=== PATIENT | male | born 1945 | race Caucasian/White ===

== ENCOUNTER → 2016-11-17 | Outpatient (REF) | LOC: COL.CARD 11:42 | DX: R94.31 Abnormal electrocardiogram [ECG] [EKG] (principal); R06.09 Other forms of dyspnea ==

== ENCOUNTER → 2017-04-09 | Outpatient (REF) | LOC: ZLAB.WCH 18:00 | DX: Z01.89 Encounter for other specified special examinations (principal) | CPT/HCPCS: G0103 ==

== ENCOUNTER → 2018-05-23 | Outpatient (REF) | LOC: ZLAB.WCH 16:15 | DX: Z01.89 Encounter for other specified special examinations (principal) | CPT/HCPCS: G0103 ==

== ENCOUNTER → 2021-06-16 | Outpatient (CLI) | payer MEDICARE ==
[~2021-06-16] MED LIST: ALBUTEROL0.83 MG/ML IH; ALBUTEROL0.83 MG/ML INH; BROVANA15 MCG/2 M IH; COMBIRESP IH; PREDNISONE10 MG PO; PULMICORT0.5 MG/2 M PO; TESSALON P100 MG/CAP PO; ZITHROMAX500 M2 PO
== END ==
LOC: COL.RAD 13:50
DX: Z12.2 Encounter for screening for malignant neoplasm of respiratory organs (principal); J43.9 Emphysema, unspecified; I77.810 Thoracic aortic ectasia; Z87.891 Personal history of nicotine dependence

== ENCOUNTER 2023-02-10 20:19 | Emergency (ER) | payer MEDICARE ==
[~2023-02-10] VITALS: Ht 185.4 cm; Wt 69.5 kg
[2023-02-10 20:50] LABS: BASO % 0.2 % (0.0-2.0); GRAN # 10.6 K/mm3 (1.4-6.5); GRAN % 88.6 % (42.2-75.2); LYMPH # 0.8 K/mm3 (1.2-3.4); LYMPH % 6.6 % (20.0-51.0); MEAN CELL VOLUME 82 fl (80.0-100.0); MEAN CORPUSCULAR HGB CONC 31 g/dl (33.0-37.0); MEAN PLATELET VOLUME 9.9 fl (7.4-10.4); MONO # 0.5 K/mm3 (0.1-0.6); MONO % 4.2 % (1.7-9.3); PLATELET COUNT 423 K/mm3 (130-400); RED BLOOD COUNT 2.86 M/mm3 (4.20-5.60); REDCELL DISTRIBUTION WIDTH-CV 15.3 % (11.5-14.5)
[2023-02-10 20:52] LABS: HEMATOCRIT 23.3 % (42.0-52.0); HEMOGLOBIN 7.1 g/dl (13.5-18.0); MEAN CORPUSCULAR HEMOGLOBIN 25 pg (27-31)
[2023-02-10 20:56] LABS: INR 1.3 (0.8-3.0); PROTHROMBIN TIME 15.1 SECONDS (9.7-12.8)
[2023-02-10 20:59] LABS: PARTIAL THROMBOPLASTIN TIME 23.3 SECONDS (26.0-37.0)
[2023-02-10 21:11] LABS: ALBUMIN 3.6 gm/dL (3.4-4.8); BILIRUBIN,TOTAL 0.5 mg/dL (0.2-1.2); CALCIUM 9.1 mg/dL (8.4-10.2); CREATININE, serum 1.03 mg/dL (0.72-1.25); POTASSIUM 3.7 mmol/L (3.5-4.5); TOTAL PROTEIN 6.4 gm/dL (6.2-8.1)
[2023-02-10 21:16] LABS: TROPONIN-I 0.022 ng/mL (0.00-0.033)
[2023-02-10 22:20] LABS: MEAN CELL VOLUME 79 fl (80.0-100.0); MEAN CORPUSCULAR HGB CONC 31 g/dl (33.0-37.0); MEAN PLATELET VOLUME 9.6 fl (7.4-10.4); PLATELET COUNT 432 K/mm3 (130-400); RED BLOOD COUNT 3.11 M/mm3 (4.20-5.60); REDCELL DISTRIBUTION WIDTH-CV 15.3 % (11.5-14.5)
[2023-02-10 22:30] LABS: HEMATOCRIT 24.7 % (42.0-52.0); HEMOGLOBIN 7.7 g/dl (13.5-18.0); MEAN CORPUSCULAR HEMOGLOBIN 25 pg (27-31)
[2023-02-10 22:46] LABS: LYMPHOCYTE 2 % (20.0-51.0); NEUTROPHILS 98 % (42.0-75.2); PLATELET ESTIMATE INCREASED (NORMAL)
[2023-02-10 22:47] LABS: ANISOCYTOSIS 1+; HYPOCHROMIA 2+; MICROCYTOSIS 1+; OVALOCYTES 1+
[2023-02-10 23:25] VITALS: BP 125/69; PULSE 109; TEMP 96.8
== END 2023-02-10 23:25 | disposition short-term general hospital (02) ==
LOC: COL.ER 20:19
PROVIDERS: Emergency Medicine
DX: J44.1 Chronic obstructive pulmonary disease with (acute) exacerbation (principal); R00.0 Tachycardia, unspecified; D64.9 Anemia, unspecified; R79.89 Other specified abnormal findings of blood chemistry; Z99.81 Dependence on supplemental oxygen; Z87.891 Personal history of nicotine dependence
CPT/HCPCS: C9113; J7030

== ENCOUNTER 2023-03-10 19:07 | Inpatient (IN) | payer MEDICARE ==
[~2023-03-10] VITALS: Ht 182.9 cm; Wt 59.2 kg
[2023-03-10] MEDS ORDERED: TRELEGY ELLIPT1 EACH IH (19:35)
[2023-03-10] MEDS ORDERED: COMBIRESP IH (19:35)
[2023-03-10] MEDS ORDERED: PROTONIX 40MG T40 MG PO (19:35)
[2023-03-10] MEDS ORDERED: ATIVAN 0.50.5 MG/TAB PO (19:36)
[2023-03-10 21:37] VITALS: BP 124/75; PULSE 91; TEMP 97.8
--- NOTE | 2023-03-10 22:31 | NUR ---
THE PATIENT ARRIVED VIA PRIVATE VEHICLE TO THE ED. THE PATIENT WAS ESCORED UP TO THE FLOOR BY THE HOUSE SUP. VIA A WC. THE PATIENT IS ALERT AND ORIENTED UPON ARRIVAL NO S/S OF DISTRESS NOTED. WILL MONITOR.
[2023-03-10 23:17] VITALS: BP 137/73; PULSE 89; TEMP 98
[2023-03-11] VITALS (17 sets, daily range): BP systolic 96–119; BP diastolic 44–79; PULSE 72–120; TEMP 98–99.1
[2023-03-11 00:26] LABS: HEMATOCRIT 22.3 % (42.0-52.0); HEMOGLOBIN 7.2 g/dl (13.5-18.0)
[2023-03-11 06:48] LABS: CALCIUM 8.5 mg/dL (8.4-10.2); CREATININE, serum 0.93 mg/dL (0.72-1.25); POTASSIUM 3.3 mmol/L (3.5-4.5)
[2023-03-11 07:43] LABS: BASO % 0.4 % (0.0-2.0); EOS # 0.1 K/mm3 (0.0-0.7); EOS % 1.1 % (0.0-4.0); GRAN # 3.8 K/mm3 (1.4-6.5); GRAN % 66.6 % (42.2-75.2); LYMPH # 1.2 K/mm3 (1.2-3.4); LYMPH % 20.5 % (20.0-51.0); MEAN CELL VOLUME 84 fl (80.0-100.0); MEAN CORPUSCULAR HGB CONC 33 g/dl (33.0-37.0); MEAN PLATELET VOLUME 10.5 fl (7.4-10.4); MONO # 0.6 K/mm3 (0.1-0.6); MONO % 10.9 % (1.7-9.3); PLATELET COUNT 268 K/mm3 (130-400); RED BLOOD COUNT 2.26 M/mm3 (4.20-5.60)
[2023-03-11 07:45] LABS: HEMATOCRIT 18.9 % (42.0-52.0); HEMOGLOBIN 6.2 g/dl (13.5-18.0); MEAN CORPUSCULAR HEMOGLOBIN 27 pg (27-31)
--- NOTE | 2023-03-11 08:00 | NUR ---
Patient is resting in bed, alert and oriented, telemetry in place, NSR. Receivig 3L O2 NC. Assessment completed. Pt complains of some nausea but not emesis. No further needs at this time. Call light within reach.
--- NOTE | 2023-03-11 11:49 | NUR ---
SW met with pt to complete intake. Pt reports he lives at home with his , Melissa, she has parkinson. He reports his son KERRY is his health advocate @ [phone]. He reports independent on all ADLS and does not use any DME. He has 02 at home of 3L. PCP is [facility] and gets medications from [facility]. Pt reports he has used [facility] before in the past and his PCP is making a order for him on 03/12 for HH services. No other needs at this time. SW await for further recommendations and follow up as needed. DC: Home
--- NOTE | 2023-03-11 18:59 | NUR ---
Patient has been stable, receiving blood transfusion per orders. Report given to night RN.
[2023-03-11 22:31] LABS: HEMATOCRIT 24.9 % (42.0-52.0); HEMOGLOBIN 8.4 g/dl (13.5-18.0)
[2023-03-11 22:49] LABS: IRON,SERUM 242 ug/dL (50-175)
[2023-03-12] VITALS (10 sets, daily range): BP systolic 99–112; BP diastolic 53–69; PULSE 75–109; TEMP 97–98.6
[2023-03-12 08:52] LABS: CALCIUM 8.2 mg/dL (8.4-10.2); CREATININE, serum 0.85 mg/dL (0.72-1.25); POTASSIUM 3.5 mmol/L (3.5-4.5)
--- NOTE | 2023-03-12 08:59 | NUR ---
THIS NURSE WAS NOTIFIED BY [facility] STATING PT'S HEART RATE WAS IN THE 130'S. PT WAS NOTED TO BE ON THE BEDSIDE COMMODE WITH PCT IN THE ROOM. PT COMPLAINT OF NAUSEA AND DIARRHEA. PRN ZOFRAN ADMINISTERED. PT ASSISTED BACK TO THE BED. PT DID STATE SOME DIFFICULTY WITH BREATHING O2 INCREASED TO 3L. NO COMPLAINT OF CHEST PAIN OR DISCOMFORT.
--- NOTE | 2023-03-12 10:54 | NUR ---
PT TAKEN DOWN FOR EGD AT 1050. ESCORTED BY THIS NURSE AND OR NURSE. PRIOR TO GOING DOWN PT HAD INCONT. EPISODE OF BLACK LIQUID STOOL. PT WAS CLEANED AND TRANSFERED FROM WHEELCHAIR TO STRETCHER. PT WAS ON 3L O2 VIA NC. BP WAS 94/70 HR 137.
[2023-03-12 12:28] LABS: HEMATOCRIT 21.2 % (42.0-52.0); HEMOGLOBIN 6.9 g/dl (13.5-18.0)
--- NOTE | 2023-03-12 12:57 | NUR ---
PT SON NOTIFIED OF EGD RESULTS. JT (SON) STATED HE WILL BE ON HIS WAY TO THE HOSPITAL TO DISCUSS WITH CARE TEAM PT'S PLAN OF CARE. PALLATIVE CARE CONSULTED. H&H WAS OBTAINED CRITICAL HGB OF 6.9, DR. KRISHNAN NOTIFIED. PT NOW COUGHING UP BRIGHT RED BLOOD. STOOL IS STILL BLACK LIQUID. PT IS A&O X4. PT HAS 3 CLOSE FRIENDS AT THE BEDSIDE. PT SON JAyesha ARRIVED APPROX. 1250. DR. KRISHNAN AND PALLATIVE CARE NURSE AT THE BEDSIDE.
--- NOTE | 2023-03-12 13:38 | NUR ---
Palliative Care Meeting with Dr. 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 Per Dr. Daniel pt is not a candidate for Chemo/Radiation. Per Dr. Swann during the EGD pt had large amount of bleeding from tumor- no intervention. Case was reviewed with pt per Dr Degroot. Pt had made arrangements through his son for a baker pastry to come and help with a DPOA for medical/financial- he hopes from him to come by 1500 today. Son will also be picking up his mom to bring her to the hospital to be with the pt. Pt controlling his pain with Tylenol. HGB continues to drop. I asked pt what was most important to get done today and he stated that settling the DPOA was on his mind. Pt stated, "I guess I am terminal." I responded by saying yes. Pt will go on [facility] after the baker pastry has completed paperwork.
--- NOTE | 2023-03-12 17:14 | NUR ---
PT UP FREQUENTLY TO BEDSIDE COMMODE FOR LOOSE STOOL. PT BECOMES VERY SHORT OF BREATH AND ANXIOUS WITH TRANSFERS. PT STATED HE IS FEELING EXTREMELY WEAK. PT AGREED TO HAVE A RECTAL TUBE PLACED FOR COMFORT. THIS NURSE PLACED RECTAL TUBE WITH ASSISTANCE FROM BRII MAY. PT TOLERATED WELL. PT HAS HAD MANY VISITORS THIS AFTERNOON INCLUDING HIS MEASURING MACHINE OPERATOR. FAMILY CURRENTLY AT THE BEDSIDE. PT WAS OFFERED MEDICATION FOR PAIN, DENIES PAIN AT THIS TIME. PT REMAINS ON 6L O2 VIA NC FOR COMFORT.
--- NOTE | 2023-03-12 18:06 | NUR ---
PT TOLERATING ICE CREAM AND WATER OKAY. NOT EATING SOLID FOODS.
--- NOTE | 2023-03-13 07:28 | NUR ---
DAUGHTER (ARGENTINA) INFORMED RN PATIENT IS SLEEPING AT THIS TIME AND SHE WISHES FOR HIM TO JUST REST AT THIS TIME. THIS RN WILL CALL [place] WHEN PATIENT WAKES UP. PATIENT CURRENTLY RESTING IN BED. OTHER FAMILY MEMBER APPEARS TO BE ASLEEP AT BEDSIDE. PATIETN ON 4LNC OF HUMIDIFED O2. CALL LIGHT AT BEDSIDE.
--- NOTE | 2023-03-13 08:00 | NUR ---
PATIENT AWAKE AND ALERT, RESTING IN BED. PATIENT DOES NOT WISH TO BE ASSESSED AT THIS TIME. PATIENTS FAMILY AT BEDSIDE. PATIENT APPEARS TO BE IN A PLEASANT MOOD. PATIENT DENIES ANY PAIN, NEEDS OR COMPLAINTS AT THIS TIME, CALL LIGHT WITHIN REACH.
--- NOTE | 2023-03-13 09:00 | NUR ---
Late entry from 03-12-23 Field Cane Scaler Helper collaborated with MILLY Garcia and Dr. Zane Garcia to conduct a palliative care consultation with Patient and his son at bedside. Patient was briefed on his condition. Patient reports to understand. Treatment Team reccommends to notifiy all family members to see Patient. Patient reports that his mission systems engineer will be on site at 1500 on this day to assist PAtient in completing DPOA and DPOAH. kettle worker presented to Patient that this SW can assist him with DPOAH immediatly, Patient states that he wants to complete this with his mission systems engineer. Patient has no further SW concerns at this time.
--- NOTE | 2023-03-13 11:22 | NUR ---
SW attended rounding this morning. Patients has had minimal bleeding but dreathing is becoming more shallow. Hospitalist would like to see how the patient does through the day. JAMIA reached out to Adithya at the [facility]. They are not able to accept an admission today but would be available to accept one on either Sun. or .
--- NOTE | 2023-03-13 14:45 | NUR ---
PATIENT AWAKE AND ALERT, RESTING IN BED. PATIENT DENIES ANY NEEDS OR COMPLAINTS AT THIS TIME. PATIENT HAS MULTIPLE FAMILY MEMBERS AT BEDSIDE. PATIENTS CALL LIGHT WITHIN REACH.
--- NOTE | 2023-03-13 18:10 | NUR ---
PATIENT AWAKE AND ALERT, RESTING IN BED. SMALL AMOUNT OF BLACK LIQUID NOTED IN RECTAL TUBING. PATIENT DENIES ANY NEEDS, PAIN OR COMPLAINTS AT THIS TIME. CALL LIGHT IS WITHIN REACH.
--- NOTE | 2023-03-14 06:18 | NUR ---
PT ASSESSED AT 1954 PT DENIES PAIN AT THAT TIME, AOX4, SURROUNDED BY FAMILY AND FRIENDS, REQUESTED A FRESH GLASS OF WATER OTHERWISE RESTING COMFORTABLY. AT 2334 PT REQUESTED TYLENOL FOR A HEADACHE. 0016 PT REQUESTED ATIVAN TO [place] ASLEEP MEDICATION WAS GIVEN AT THAT TIME.
--- NOTE | 2023-03-14 07:45 | NUR ---
Pt. sitting up in bed. Pt. is A&OX3, assessment complete. No iv access noted. PT. denies needs, call light within reach.
[2023-03-14] MEDS ORDERED: ATIVAN 1MG T1 MG/TAB PO ×2 (08:11→08:17)
[2023-03-14] MEDS ORDERED: SYSTANE 0.4%-0.1 SOL OU (08:11)
[2023-03-14] MEDS ORDERED: ROXANOL 20MG20 MG/ML SL (08:11)
[2023-03-14] MEDS ORDERED: TRANSDERM-0.5 MG/21 TD (08:11)
[2023-03-14] MEDS ORDERED: DULCOLAX S10 MG/SUPP RC (08:11)
--- NOTE | 2023-03-14 10:46 | NUR ---
JAMIA received notification from Adityha at the [facility] that they are able to accept this patient for an 1100 admission. Grace notified Phone call made to the patients son KERRY to update. KERRY defers me to his sister Lalit who is at bedside. JAMIA met with Lalit who would like time to go to tour the facility on her own, as she was not satisified with the report she got from family memebers on yesterdays visit. Patient anxious today. Phone call received from Lalit that after seeing the facility, and speaking with her father he is now in agreement with todays transfer. Adithya with [facility] notified and discharge orders sent to Adithya. [facility] contacted and arranged for transfer at 1100. Discharge plan: [facility].
--- NOTE | 2023-03-14 11:15 | NUR ---
Pt. discharged to [facility]. EMS transferred. Assisted daughter out with belong. Report called to [facility].
== END 2023-03-14 11:15 | disposition hospice, home (50) | DRG 375 ==
LOC: MEDICAL 19:07
PROVIDERS: Internal Medicine Gastroenterology; Nurse Practitioner Family; ADMIT Internal Medicine
PROC: 0DJ08ZZ Inspection of Upper Intestinal Tract, Via Natural or Artificial Opening Endoscopic (ICD-10-PCS; principal; 2023-03-12 10:30)
DX: C16.9 Malignant neoplasm of stomach, unspecified (principal); C78.7 Secondary malignant neoplasm of liver and intrahepatic bile duct; D62 Acute posthemorrhagic anemia; J96.11 Chronic respiratory failure with hypoxia; K92.1 Melena; I71.40 Abdominal aortic aneurysm, without rupture, unspecified; Z66 Do not resuscitate; F41.9 Anxiety disorder, unspecified; J43.9 Emphysema, unspecified; D63.0 Anemia in neoplastic disease; Z23 Encounter for immunization; Z51.5 Encounter for palliative care; Z99.81 Dependence on supplemental oxygen; Z90.49 Acquired absence of other specified parts of digestive tract; Z87.891 Personal history of nicotine dependence; Z88.6 Allergy status to analgesic agent
CPT/HCPCS: G0378; G0379; J2405; J2704; J7120; P9016